=== PATIENT | male | born 1965 | race African-American/Black ===

== ENCOUNTER 2016-05-27 03:09 | Emergency (ER) | payer BC, OTHER ==
[~2016-05-27] VITALS: Ht 182.9 cm; Wt 97.5 kg
--- OUTSIDE RECORDS SUMMARY | 2016-05-27 03:17 | XMS REPORT ---
Author Author FREYA AMAYA [facility] eClinicalWorks Address Unknown Phone Unavailable Care Team Providers Care Drafter [employer] Name Role Phone FREYA AMAYA CP Unavailable Allergies No Known Allergies Problems Problem Type Condition Code Onset Dates Condition Status Assessment Visit for TB skin test Z11.1 Active Medications No Known Medications Procedures Procedure Coding System Code Date TB INTRADERMAL TEST CPT-4 27531 Jan 03, 2016 TB INTRADERMAL TEST CPT-4 15472 Jan 03, 2016 Results No Known Results Summary Purpose eClinicalWorks Submission
[2016-05-27] MEDS ORDERED: EPINEPHrine INJECTION 1 MG/ML AMP IM STA ×3 (03:25→04:41)
[2016-05-27] MEDS ORDERED: methylPREDNISolone 125 MG (Solu-MEDROL) VIAL IVP ONE ×2 (03:30→04:45)
[2016-05-27] MEDS ORDERED: cloNIDine 0.2 MG (CATAPRES) TAB PO ONE (03:30)
[2016-05-27] MEDS ORDERED: diphenhydrAMINE 50 MG/ML INJ (BENADRYL) IVP ONE ×2 (03:30→04:45)
[2016-05-27] MEDS ORDERED: FAMOTIDINE 20MG/2ML IV (PEPCID) IVP ONE (03:30)
[2016-05-27 03:33] LABS: BASOPHILS # (AUTO) 0.1 10^3/uL (0.0-0.1); BASOPHILS % (AUTO) 1 % (0-10); EOSINOPHILS # (AUTO) 2.1 10^3/uL (0.0-0.3); EOSINOPHILS % (AUTO) 23 % (0-10); LYMPHOCYTES # (AUTO) 2.3 X 10^3 (1.0-4.0); LYMPHOCYTES % (AUTO) 26 % (12-44); MEAN CORPUSCULAR HEMOGLOBIN 26 PG (25-34); MEAN CORPUSCULAR HGB CONC 33 G/DL (32-36); MEAN CORPUSCULAR VOLUME 79 FL (80-99); MEAN PLATELET VOLUME 10.1 FL (7.4-10.4); MONOCYTES % (AUTO) 11 % (0-12); NEUTROPHILS # (AUTO) 3.5 X 10^3 (1.8-7.8); NEUTROPHILS % (AUTO) 39 % (42-75); PLATELET COUNT 309 10^3/uL (130-400); RED BLOOD COUNT 5.53 10^6/uL (4.35-5.85); RED CELL DISTRIBUTION WIDTH 15.1 % (10.0-14.5); WHITE BLOOD COUNT 8.9 10^3/uL (4.3-11.0)
[2016-05-27 03:50] LABS: ALANINE AMINOTRANSFERASE 21 U/L (0-55); ALBUMIN 3.9 G/DL (3.2-4.5); ANION GAP 10 MMOL/L (5-14); ASPARTATE AMINO TRANSFERASE 31 U/L (5-34); BILIRUBIN,TOTAL 0.2 MG/DL (0.1-1.0); BLOOD UREA NITROGEN 11 MG/DL (7-18); BUN/CREATININE RATIO 9; CALCIUM 8.9 MG/DL (8.5-10.1); CARBON DIOXIDE 21 MMOL/L (21-32); CHLORIDE 106 MMOL/L (98-107); CREATININE SERUM 1.21 MG/DL (0.60-1.30); GFR ESTIMATED > 60; GLUCOSE 159 MG/DL (70-105); POTASSIUM 4.6 MMOL/L (3.6-5.0); SODIUM 137 MMOL/L (135-145); TOTAL PROTEIN 7.6 G/DL (6.4-8.2)
[2016-05-27 03:57] LABS: BAND NEUTROPHILS 0 %; BASOPHILS % (MANUAL) 1 %; EOSINOPHILS % (MANUAL) 25 %; LYMPHOCYTES % (MANUAL) 19 %; NEUTROPHILS % (MANUAL) 37 %; REACTIVE LYMPHOCYTES 8 %
[2016-05-27 03:58] LABS: ANISOCYTOSIS SLIGHT
--- NOTE | 2016-05-27 04:47 | ED EENT ---
History of Present Illness General Chief Complaint: Oral/Throat Problems Stated Complaint: SWOLLEN TONGUE Nursing Triage Note: PT STATES HIS TONGUE IS SWELLING, NOTICED IT AROUND 0100. Source: patient (TRESSA LING DO) History of Present Illness Time seen by provider: 03:18 Initial Comments PT ARRIVES VIA POV FROM HOME STATES HE WOKE UP AT 0100 TODAY WITH TONGUE SWELLING NO SWELLING TO THROAT NO CHEST TIGHTNESS, SHORTNESS OF BREATH, OR WHEEZING ABLE TO SWALLOW LIQUIDS WITHOUT CHOKING OR DROOLING NO PAIN NO RASH OR ITCHING NO SWELLING ANYWHERE ELSE ON BODY PT STATES HE HAD SIMILAR APPROXIMATELY 3 MONTHS AGO, BUT WAS NOT BAD AND WAS ONLY ONE SIDE OF HIS TONGUE A WEEK AGO, HIS WHOLE FACE WAS SWOLLEN--PT STOPPED HIS LISINOPRIL AT THAT TIME DID NOT SEEK CARE AT THE TIME FOR EITHER OF THESE EPISODES SAW HIS PCP DR. KING ON 05/22/16 . NO NEW BP MEDICATIONS STARTED. PCP: DR. KING AT [facility] ([facility]) Allergies and Home Medications Allergies Coded Allergies: CLINT Inhibitors (Verified Allergy, Unknown, 05/27/16) Home Medications Epinephrine 0.3 Mg/0.3 Ml Auto.injct #1 0.3 MG IJ PRN Prescribed by: ADRIAN SCHNEIDER on 05/27/16 0821 Famotidine 20 Mg Tablet #20 20 MG PO BID Prescribed by: ADRIAN SCHNEIDER on 05/27/16 08 Prednisone 20 Mg Tab #6 20 MG PO BID Prescribed by: ADRIAN SCHNEIDER on 05/27/16 0821 Review of Systems Constitutional: no symptoms reported Eyes: No Symptoms Reported Ears: No Symptoms Reported Nose: no symptoms reported Mouth: see HPI Throat: no symptoms reported Respiratory: no symptoms reported Cardiovascular: no symptoms reported Gastrointestinal: no symptoms reported Musculoskeletal: no symptoms reported Skin: no symptoms reported Neurological: No Symptoms Reported Hematologic/Lymphatic: No Symptoms Reported Immunological/Allergic: see HPI (TRESSA LING DO) Past Nfzvhfp-Dnwbva-Gjnlvs Hx Patient Social History Alcohol Use: Rarely Uses Recreational Drug Use: No Smoking Status: Never a Smoker Recent Foreign Travel: No Contact w/Someone Who Travel: No Recent Infectious Disease Expo: No Recent Hopitalizations: No Physical Abuse Screen: No Sexual Abuse: No (TRESSA LING DO) Seasonal Allergies Seasonal Allergies: No (ROSALBA,TRESSA K DO) Surgeries HX Surgeries: No (ROSALBA,TRESSA K DO) Respiratory Hx Respiratory Disorders: Yes Respiratory Disorders: Asthma (ROSALBA,TRESSA K DO) Cardiovascular Hx Cardiac Disorders: Yes Cardiac Disorders: Hypertension (ROSALBA,TRESSA K DO) Neurological Hx Neurological Disorders: No (ROSALBA,TRESSA K DO) Reproductive System Hx Reproductive Disorders: No (ROSALBA,TRESSA K DO) Genitourinary Hx Genitourinary Disorders: No (ROSALBA,TRESSA K DO) Gastrointestinal Hx Gastrointestinal Disorders: No (ROSALBA,TRESSA K DO) Musculoskeletal Hx Musculoskeletal Disorders: No (ROSALBA,TRESSA K DO) Endocrine Hx Endocrine Disorders: No (ROSALBA,TRESSA K DO) HEENT HX ENT Disorders: Yes (ANGIOEDEMA OF TONGUE--SUSPECTED TO BE CAUSED BY CLINT INHIBITOR) (ROSALBA,TRESSA K DO) Cancer Hx Cancer: No (ROSALBA,TRESSA K DO) Psychosocial Hx Psychiatric Problems: No (ROSALBA,TRESSA K DO) Integumentary HX Skin/Integumentary Disorder: No (ROSALBA,TRESSA K DO) Blood Transfusions Hx Blood Disorders: No (ROSALBA,TRESSA K DO) Physical Exam Vital Signs Vital Sign - Last 12Hours 05/27/16 03:18 Temp 97.3 Pulse 82 Resp 20 B/P 206/127 (ADRIAN ENG MD) General Appearance: WD/WN no apparent distress Eyes: bilateral eye normal inspection Nose: normal inspection Mouth/Throat: tongue swollen (SIGNIFICANT--TONGUE TOUCHING ROOF OF MOUTH, PT' S VOICE IS VERY MUFFLED, BUT IS ABLE TO HANDLE SECRETIONS. 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 no motor/sensory deficits alert normal mood/affect oriented x 3 Skin: normal color warm/dryNo rash (ROSALBA,TRESSA K DO) Progress/Results/Core Measures Results/Orders Lab Results Laboratory Tests Test 05/27/16 03:24 Range/Units Alanine Aminotransferase (ALT/SGPT) 21 0-55 U/L Albumin 3.9 3.2-4.5 G/DL Alkaline Phosphatase 66 40-136 U/L Anion Gap 10 5-14 MMOL/L Anisocytosis SLIGHT Aspartate Amino Transf (AST/SGOT) 31 5-34 U/L BUN/Creatinine Ratio 9 Band Neutrophils 0 % Basophils # (Auto) 0.1 0.0-0.1 10^3/uL Basophils % (Manual) 1 % Basophils (%) (Auto) 1 0-10 % Blood Urea Nitrogen 11 7-18 MG/DL Calcium Level 8.9 8.5-10.1 MG/DL Carbon Dioxide Level 21 21-32 MMOL/L Chloride Level 106 98-107 MMOL/L Creatinine 1.21 0.60-1.30 MG/DL Eosinophils # (Auto) 2.1 H 0.0-0.3 10^3/uL Eosinophils % (Manual) 25 % Eosinophils (%) (Auto) 23 H 0-10 % Estimat Glomerular Filtration Rate > 60 Glucose Level 159 H 70-105 MG/DL Hematocrit 44 40-54 % Hemoglobin 14.3 13.3-17.7 G/DL Lymphocytes # (Auto) 2.3 1.0-4.0 X 10^3 Lymphocytes % (Manual) 19 % Lymphocytes (%) (Auto) 26 12-44 % Mean Corpuscular Hemoglobin 26 25-34 PG Mean Corpuscular Hemoglobin Concent 33 32-36 G/DL Mean Corpuscular Volume 79 L 80-99 FL Mean Platelet Volume 10.1 7.4-10.4 FL Monocytes # (Auto) 1.0 0.0-1.0 X 10^3 Monocytes % (Manual) 10 % Monocytes (%) (Auto) 11 0-12 % Neutrophils # (Auto) 3.5 1.8-7.8 X 10^3 Neutrophils % (Manual) 37 % Neutrophils (%) (Auto) 39 L 42-75 % Platelet Count 309 130-400 10^3/uL Potassium Level 4.6 3.6-5.0 MMOL/L Reactive Lymphocytes 8 % Red Blood Count 5.53 4.35-5.85 10^6/uL Red Cell Distribution Width 15.1 H 10.0-14.5 % Sodium Level 137 135-145 MMOL/L Total Bilirubin 0.2 0.1-1.0 MG/DL Total Protein 7.6 6.4-8.2 G/DL White Blood Count 8.9 4.3-11.0 10^3/uL (ADRIAN ENG MD) My Orders Orders-ADRIAN ENG MD Hydrochlorothiazide Cap/Tablet (Hctz Cap (05/27/16 08:15) (ADRIAN ENG MD) Medications Given in ED Current Medications Medications Dose Ordered Sig/Jelly Route Start Time Stop Time Status Last Admin Dose Admin Clonidine HCl 0.2 mg ONCE ONCE PO 05/27/16 03:30 05/27/16 03:31 DC 05/27/16 03:39 0.2 MG Diphenhydramine HCl 50 mg ONCE ONCE IVP 05/27/16 03:30 05/27/16 03:31 DC 05/27/16 03:39 50 MG Diphenhydramine HCl 50 mg ONCE ONCE IVP 05/27/16 04:45 05/27/16 04:46 DC 05/27/16 04:49 50 MG Famotidine 40 mg ONCE ONCE IVP 05/27/16 03:30 05/27/16 03:31 DC 05/27/16 03:40 40 MG Hydrochlorothiazide 25 mg ONCE ONCE PO 05/27/16 08:15 05/27/16 08:16 DC 05/27/16 08:21 25 MG Methylprednisolone Sodium Succinate 125 mg ONCE ONCE IVP 05/27/16 03:30 05/27/16 03:31 DC 05/27/16 03:40 125 MG Methylprednisolone Sodium Succinate 125 mg ONCE ONCE IVP 05/27/16 04:45 05/27/16 04:46 DC 05/27/16 04:49 125 MG (ADRIAN ENG MD) Vital Signs/I&O Vital Sign - Last 12Hours 05/27/16 03:18 Temp 97.3 Pulse 82 Resp 20 B/P 206/127 (ADRIAN ENG MD) Blood Pressure Mean: 153 Progress Note : Progress Note 0530-SOME IMPROVEMENT IN SWELLING AND VOICE LESS MUFFLED HAVE ADVISED ADMIT, BUT PT WOULD LIKE TO BE OBSERVED IN ER FOR A LITTLE WHILE LONGER AND AVOID ADMIT IF POSSIBLE. 0600--CARE TURNED OVER TO DR. ENG (TRESSA LING DO) Progress Note : Time: 08:09 Progress Note Patient was monitored for an additional 2 hours after I assumed care of this patient from Dr. Ling. His symptoms markedly improved with no additional treatments. The cause could be related to lisinopril, but patient clarifies he has not used lisinopril and over one week. He was encouraged to follow up with his primary care provider as soon as possible to discuss other causes as well as treatment of his hypertension. For the time being, hydrochlorothiazide will be started. The first dose of hydrochlorothiazide was administered in the ER before his departure. (ADRIAN ENG MD) Departure Impression Impression: Primary Impression: ANGIOEDEMA OF TONGUE Additional Impressions: SUSPETED CAUSE --CLINT INHIBITOR Hypertension, uncontrolled Disposition: HOME, SELF-CARE Condition: Improved Departure-Patient Inst. Decision time for Depature: 08:00 (ADRIAN ENG MD) Referrals: [facility] (PCP) Primary Care Physician Patient Instructions: Angioedema Add. Discharge Instructions: Do not take any CLINT inhibitor such as lisinopril. Eat a low-salt diet and focus on exercise and weight reduction to help control your blood pressure. A trial of hydrochlorothiazide has been prescribed to you for treatment of your blood pressure. Follow-up with your primary care provider as soon as possible for further evaluation of angioedema and your high blood pressure. Keep Benadryl and an EpiPen with you whenever possible for treatment of emergent angioedema. Use Benadryl 50 mg immediately for any recurrent symptoms of angioedema. Use the EpiPen for life-threatening swelling of the tongue or throat and present to the nearest hospital as soon as possible. Call 911 if necessary. You may continue using Zyrtec daily. All discharge instructions reviewed with patient and/or family. Voiced understanding. Scripts Hydrochlorothiazide 25 Mg [id number] Mg PO DAILY #30 TAB Prov:ADRIAN ENG MD 05/27/16 Epinephrine (Epipen 2-Maykel)0.3 Mg/0.3 Ml Auto.injct0.3 Mg IJ PRN #1 ML Prov:ADRIAN ENG MD 05/27/16 Prednisone 20 Mg Tab20 Mg PO BID #6 TAB Prov:ADRIAN ENG MD 05/27/16 Famotidine (Pepcid)20 Mg Sonqyn78 Mg PO BID #20 TAB Prov:ADRIAN ENG MD 05/27/16 Copy Copies To 1: KATHIA KING MD, LISA K DO May 27, 2016 04:47 ADRIAN ENG MD May 27, 2016 08:14
[2016-05-27] MEDS ORDERED: HYDROCHLOROTHIAZIDE 25 MG (HCTZ) TAB PO ONE (08:15)
[2016-05-27] MEDS ORDERED: PRD20T PO (08:21)
[2016-05-27] MEDS ORDERED: FAMO-119 PO (08:21)
[2016-05-27] MEDS ORDERED: EPIN0.3P3 IJ (08:21)
[2016-05-27] MEDS ORDERED: HYDR25TA4 PO (08:27)
[2016-05-27 08:30] VITALS: BP 151/104
== END 2016-05-27 08:35 | disposition home or self-care (01) ==
LOC: ER 03:14
DX: T78.3XXA Angioneurotic edema, initial encounter (principal); I16.0 Hypertensive urgency
CPT/HCPCS: 36415; 80053; 85007; 85027; 96372; 96374; 96375; 96376

== ENCOUNTER 2016-06-12 06:41 | Emergency (ER) | payer BC, OTHER ==
[~2016-06-12] VITALS: Ht 180.3 cm; Wt 111.1 kg
[~2016-06-12 06:41] MED LIST: EPIN0.3P3 IJ; FAMO-119 PO; HYDR25TA4 PO; PRD20T PO
--- OUTSIDE RECORDS SUMMARY | 2016-06-12 06:47 | XMS REPORT | Continuity of Care Document ---
Author Author [facility] Organization [facility] Address Unknown Phone Unavailable Care Team Providers Care Design Lead Name Role Phone [facility] PCP Insurance Providers Payer Name Policy Number Subscriber Name Relationship [facility] [id number] Carmel Bonner 18 Self / Same As Patient Advance Directives Directive Response Recorded Date/Time Advance Directives No 05/27/16 3:22am Resuscitation Status Full Code 05/27/16 3:22am Chief Complaint and Reason for Visit Chief Complaint Oral/Throat Problems Reason for Visit ANGIOEDEMA OF TONGUE [id number] SUSPETED CAUSE --CLINT INHIBITOR Problems Active Problems Medical Problem Onset Date Status Hypertension, uncontrolled Unknown Acute Medications Current Home Medications Medication Dose Units Route Directions Days/Qty Instructions Start Date Famotidine 20 Mg 20 Mg Oral Twice A Day 20 05/27/16 Prednisone 20 Mg 20 Mg Oral Twice A Day 6 05/27/16 Epinephrine 0.3 Mg/0.3 Ml 0.3 Mg Injection As Needed 1 05/27/16 Hydrochlorothiazide 25 Mg 25 Mg Oral Daily 30 05/27/16 Social History Social History Problem Response Recorded Date/Time Alcohol Use Rarely Uses 05/27/2016 4:48am Recreational Drug Use No 05/27/2016 3:22am Recent Foreign Travel No 05/27/2016 3:18am Recent Infectious Disease Exposure No 05/27/2016 3:18am Hospitalization with Isolation Denies 05/27/2016 3:18am Smoking Status Never a Smoker 05/27/2016 3:22am Recent Hopitalizations No 05/27/2016 3:22am Hospitalization with Isolation Denies 05/27/2016 3:18am Query Response Start Date Stop Date Smoking Status Never a Smoker Hospital Discharge Instructions No hospital discharge instructions. Plan of Care Discharge Date 05/27/16 8:35am Disposition 01 HOME, SELF-CARE Condition at Discharge Improved Instructions/Education Provided Angioedema Prescriptions See Medication Section Referrals [facility] - Primary Care Physician Additional Instructions/Education Do not take any CLINT inhibitor such as lisinopril. Eat a low-salt diet and focus on exercise and weight reduction to help control your blood pressure. A trial of hydrochlorothiazide has been prescribed to you for treatment of your blood pressure. Follow-up with your primary care provider as soon as possible for further evaluation of angioedema and your high blood pressure. Keep Benadryl and an EpiPen with you whenever possible for treatment of emergent angioedema. Use Benadryl 50 mg immediately for any recurrent symptoms of angioedema. Use the EpiPen for life-threatening swelling of the tongue or throat and present to the nearest hospital as soon as possible. Call 911 if necessary. You may continue using Zyrtec daily. All discharge instructions reviewed with patient and/or family. Voiced understanding. Functional Status No functional status results. Allergies, Adverse Reactions, Alerts Allergen Type Severity Reaction Status Last Updated Angiotensin-converting enzyme inhibitor Allergy Unknown Active 05/27/16 Immunizations No immunization records. Vital Signs Acute Vital Signs Vital Response Date/Time Temperature (Fahrenheit) 97.3 degrees F (97.6 - 99.5) 05/27/2016 3:18am Temperature (Calculated Celsius) 36.08423 degrees C (36.4 - 37.5) 05/27/2016 3:18am Temperature Source Temporal 05/27/2016 3:18am Pulse Rate (adult) 82 bpm (60 - 90) 05/27/2016 3:18am Respiratory Rate 20 bpm (12 - 24) 05/27/2016 3:18am Blood Pressure 206/127 mm Hg 05/27/2016 3:18am Blood Pressure Mean 153 mm Hg 05/27/2016 3:18am Height (Feet) 6 feet 05/27/2016 3:18am Height (Inches) 0 inches 05/27/2016 3:18am Height (Calculated Centimeters) 182.794872 cm 05/27/2016 3:18am Weight (Pounds) 215 pounds 05/27/2016 3:18am Weight (Calculated Kilograms) 97.206280 kilograms 05/27/2016 3:18am Capillary Refill Capillary Refill Less Than 3 Seconds 05/27/2016 3:18am Height 6 ft 0 in Weight 215 lb Body Mass Index 29.2 kg/m^2 Results Laboratory Results Test Name Result Units Flags Reference Collection Date/Time Result Date/ Time Comments White Blood Count 8.9 10^3/uL 4.3-11.0 05/27/2016 3:05/27/2016 3: 34am Red Blood Count 5.53 10^6/uL 4.35-5.85 05/27/2016 3:05/27/2016 3: 34am Hemoglobin 14.3 G/DL 13.3-17.7 05/27/2016 3:05/27/2016 3:34am Hematocrit 44 % 40-54 05/27/2016 3:05/27/2016 3:34am Mean Corpuscular Volume 79 FL L 80-99 05/27/2016 3:05/27/2016 3: 34am Mean Corpuscular Hemoglobin 26 PG 25-34 05/27/2016 3:05/27/2016 3: 34am Mean Corpuscular Hemoglobin Concent 33 G/DL 32-36 05/27/2016 3: 3:34am Red Cell Distribution Width 15.1 % H 10.0-14.5 05/27/2016 3:2016 3:34am Platelet Count 309 10^3/uL 130-400 05/27/2016 3:05/27/2016 3:34am Mean Platelet Volume 10.1 FL 7.4-10.4 05/27/2016 3:05/27/2016 3: 34am Neutrophils (%) (Auto) 39 % L 42-75 05/27/2016 3:05/27/2016 3:34am Lymphocytes (%) (Auto) 26 % 12-44 05/27/2016 3:05/27/2016 3:34am Monocytes (%) (Auto) 11 % 0-12 05/27/2016 3:05/27/2016 3:34am Eosinophils (%) (Auto) 23 % H 0-10 05/27/2016 3:05/27/2016 3:34am Basophils (%) (Auto) 1 % 0-10 05/27/2016 3:05/27/2016 3:34am Neutrophils # (Auto) 3.5 X 10^3 1.8-7.8 05/27/2016 3:05/27/2016 3: 34am Lymphocytes # (Auto) 2.3 X 10^3 1.0-4.0 05/27/2016 3:05/27/2016 3: 34am Monocytes # (Auto) 1.0 X 10^3 0.0-1.0 05/27/2016 3:05/27/2016 3: 34am Eosinophils # (Auto) 2.1 10^3/uL H 0.0-0.3 05/27/2016 3:05/27/2016 3 :34am Basophils # (Auto) 0.1 10^3/uL 0.0-0.1 05/27/2016 3:05/27/2016 3: 34am Neutrophils % (Manual) 37 % 05/27/2016 3:05/27/2016 3:58am Band Neutrophils 0 % 05/27/2016 3:05/27/2016 3:58am Lymphocytes % (Manual) 19 % 05/27/2016 3:05/27/2016 3:58am Monocytes % (Manual) 10 % 05/27/2016 3:05/27/2016 3:58am Eosinophils % (Manual) 25 % 05/27/2016 3:05/27/2016 3:58am Basophils % (Manual) 1 % 05/27/2016 3:05/27/2016 3:58am Reactive Lymphocytes 8 % 05/27/2016 3:05/27/2016 3:58am Anisocytosis SLIGHT 05/27/2016 3:05/27/2016 3:58am Sodium Level 137 MMOL/L 135-145 05/27/2016 3:05/27/2016 3:51am Potassium Level 4.6 MMOL/L 3.6-5.0 05/27/2016 3:05/27/2016 3:51am Chloride Level 106 MMOL/L 98-107 05/27/2016 3:05/27/2016 3:51am Carbon Dioxide Level 21 MMOL/L 21-32 05/27/2016 3:05/27/2016 3: 51am Anion Gap 10 MMOL/L 5-14 05/27/2016 3:05/27/2016 3:51am Blood Urea Nitrogen 11 MG/DL 7-18 05/27/2016 3:05/27/2016 3:51am Creatinine 1.21 MG/DL 0.60-1.30 05/27/2016 3:05/27/2016 3:51am BUN/Creatinine Ratio 9 05/27/2016 3:05/27/2016 3:51am Estimat Glomerular Filtration Rate > 60 05/27/2016 3:2016 3:51am GFR INTERPRETIVE DATA UNITS FOR ESTIMATED GFR (eGFR): mL/min/1.73 M2 REFERENCE RANGE FOR ESTIMATED GFR (eGFR) eGFR NORMAL eGFR >60 MODERATELY DECREASED eGFR 30-59 SEVERLY DECREASED eGFR 15-29 KIDNEY FAILURE <15 (OR DIALYSIS) Glucose Level 159 MG/DL H 70-105 05/27/2016 3:05/27/2016 3:51am Calcium Level 8.9 MG/DL 8.5-10.1 05/27/2016 3:05/27/2016 3:51am Total Bilirubin 0.2 MG/DL 0.1-1.0 05/27/2016 3:05/27/2016 3:51am Alkaline Phosphatase 66 U/L 40-136 05/27/2016 3:05/27/2016 3:51am Aspartate Amino Transf (AST/SGOT) 31 U/L 5-34 05/27/2016 3:2016 3:51am Alanine Aminotransferase (ALT/SGPT) 21 U/L 0-55 05/27/2016 3:05/27 3:51am Total Protein 7.6 G/DL 6.4-8.2 05/27/2016 3:05/27/2016 3:51am Albumin 3.9 G/DL 3.2-4.5 05/27/2016 3:24am 05/27/2016 3:51am Procedures No known history of procedures. Encounters Encounter Location Arrival/Admit Date Discharge/Depart Date Attending Provider Departed Emergency Room [facility] 05/27/16 3:14am 05/27 8:35am ADRIAN ENG MD Recent Diagnosis
[2016-06-12] MEDS ORDERED: AMLO10TA2 PO (06:55)
[2016-06-12] MEDS ORDERED: FAMOTIDINE 20MG/2ML IV (PEPCID) IVP ONE (07:00)
[2016-06-12] MEDS ORDERED: diphenhydrAMINE 50 MG/ML INJ (BENADRYL) IVP ONE (07:00)
[2016-06-12] MEDS ORDERED: methylPREDNISolone 125 MG (Solu-MEDROL) VIAL IVP ONE (07:00)
--- NOTE | 2016-06-12 08:26 | ED General ---
General Chief Complaint: Allergic Reaction Stated Complaint: FACIAL SWELLING Nursing Triage Note: pt reports he had facial swelling, et swelling in left forearm starting at 0500 this morning. he believed he was having a reaction to amlodipine that he started yesterday morning. he took 10 benadryl at home. he is currently taking prednisone for reactions to lisinopril et hctz. he also reports cough et sore throat which he is taking cough syrup for. Nursing Sepsis Screen: No Definite Risk Source of Information: Patient Exam Limitations: No Limitations History of Present Illness Time Seen by Provider: 06:45 Initial Comments Patient complains of right-sided facial swelling and swelling in his left forearm starting at 5 this morning. He was seen 2 weeks ago for angioedema of the tongue secondary to CLINT inhibitor. He is wondering if he is having a reaction to the amlodipine. He took Benadryl prior to arrival. He denies shortness of air or throat swelling. Allergies and Home Medications Allergies Coded Allergies: CLINT Inhibitors (Verified Allergy, Unknown, 05/27/16) Home Medications Amlodipine Besylate 10 Mg Tablet 10 MG PO DAILY (Reported) Epinephrine 0.3 Mg/0.3 Ml Auto.injct #1 0.3 MG IJ PRN Prescribed by: ADRIAN SCHNEIDER on 05/27/16820 Famotidine 20 Mg Tablet #20 20 MG PO BID Prescribed by: ADRIAN SCHNEIDER on 05/27/16820 Prednisone 20 Mg Tab #6 20 MG PO BID Prescribed by: ADRIAN SCHNEIDER on 05/27/16820 Constitutional: no symptoms reported EENTM: No throat swelling Respiratory: no symptoms reported Cardiovascular: no symptoms reported Musculoskeletal: no symptoms reported All Other Systems Reviewed Negative Unless Noted: Yes Past Ieymvzi-Pzvawo-Gypkww Hx Patient Social History Alcohol Use: Occasionally Uses Recreational Drug Use: No Smoking Status: Never a Smoker Recent Foreign Travel: No Contact w/Someone Who Travel: No Recent Infectious Disease Expo: No Recent Hopitalizations: No Seasonal Allergies Seasonal Allergies: No Surgeries HX Surgeries: No Respiratory Hx Respiratory Disorders: Yes Respiratory Disorders: Asthma Cardiovascular Hx Cardiac Disorders: Yes Cardiac Disorders: Hypertension Neurological Hx Neurological Disorders: No Reproductive System Hx Reproductive Disorders: No Genitourinary Hx Genitourinary Disorders: No Gastrointestinal Hx Gastrointestinal Disorders: No Musculoskeletal Hx Musculoskeletal Disorders: No Endocrine Hx Endocrine Disorders: No HEENT HX ENT Disorders: Yes (ANGIOEDEMA OF TONGUE--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 Parotid) is swollen) Neck: Supple Respiratory: Lungs Clear Normal Breath Sounds Cardiovascular: Regular Rate, Rhythm Gastrointestinal: Soft Extremity: Normal Inspection Other (there is some redness and swelling to the left antecubital area) Neurologic/Psychiatric: Alert No Motor/Sensory Deficits Skin: Normal Color Warm/Dry Progress/Results/Core Measures Results/Orders Lab Results Laboratory Tests Test 06/12/16 07:10 Range/Units Micro Results Microbiology 06/12/16 Influenza Types A,B Antigen (FRANNIE) - Final, Complete My Orders Orders-KELLY MATHEWS MD Diphenhydramine Injection (Benadryl Inje (06/12/16 07:00) Famotidine Injection (Pepcid Injection) (06/12/16 07:00) Methylprednisolone Sod Succ (Solu-Medrol (06/12/16 07:00) Mumps Antibody Igg & M (06/12/16 07:01) Influenza A And B Antigens (06/12/16 07:10) Mumps Antibody Igg & M (06/12/16 08:13) Medications Given in ED Current Medications Medications Dose Ordered Sig/Jelly Route Start Time Stop Time Status Last Admin Dose Admin Diphenhydramine HCl 25 mg ONCE ONCE IVP 06/12/16 07:00 06/12/16 07:01 DC 06/12/16 07:17 25 MG Famotidine 20 mg ONCE ONCE IVP 06/12/16 07:00 06/12/16 07:01 DC 06/12/16 07:17 20 MG Methylprednisolone Sodium Succinate 125 mg ONCE ONCE IVP 06/12/16 07:00 06/12/16 07:01 DC 06/12/16 07:17 125 MG Vital Signs/I&O Vital Sign - Last 12Hours 06/12/16 06:49 Temp 98.6 Pulse 109 Resp 18 B/P 150/103 O2 Delivery Room Air Blood Pressure Mean: 119 Progress Note : Time: 08:24 Progress Note Patient's symptoms are not any worse. No tongue swelling. Feels well enough to go home. Mumps titers and equal swab were sent to appropriate authorities. I spoke with [employer] hot line and faxed reportable disease form. There is a outbreak of mumps in the area and let us reason we checked them. Departure Impression Impression: Primary Impression: Facial swelling Disposition: 01 HOME, SELF-CARE Condition: Stable Departure-Patient Inst. Decision time for Depature: 08:25 Referrals: [facility] (PCP/Family) Primary Care Physician Patient Instructions: Parotitis KELLY MATHEWS MD Jun 12, 2016 08:26
[2016-06-12 08:40] VITALS: BP 142/88
[2016-06-13 13:47] LABS: IGM MUMPS ANTIBODY <1:10 (<1:10)
[2016-06-14 16:45] LABS: IGG MUMPS ANTIBODY 4.84 (0.00-0.89)
== END 2016-06-12 08:40 | disposition home or self-care (01) ==
LOC: EDUNIT# 06:41 → ER 06:43
DX: R22.0 Localized swelling, mass and lump, head (principal); R22.32 Localized swelling, mass and lump, left upper limb; Z79.899 Other long term (current) drug therapy
CPT/HCPCS: 36415; 86735; 87798; 87804; 96374; 96375

== ENCOUNTER 2016-07-01 19:54 | Emergency (ER) | payer BC ==
[~2016-07-01] VITALS: Ht 180.3 cm; Wt 115.7 kg
[~2016-07-01 19:54] MED LIST changes: +AMLO10TA2 PO
--- OUTSIDE RECORDS SUMMARY | 2016-07-01 19:59 | XMS REPORT | Continuity of Care Document ---
Author Author [facility] Organization [facility] Address Unknown Phone Unavailable Care Team Providers Care Tip Tester Name Role Phone [facility] Insurance Providers Payer Name Policy Number Subscriber Name Relationship [facility] [id number] Carmel Bonner 19 Self / Same As Patient Advance Directives Directive Response Recorded Date/Time Advance Directives No 05/27/16 3:22am Resuscitation Status Full Code 05/27/16 3:22am Chief Complaint and Reason for Visit Chief Complaint Oral/Throat Problems Reason for Visit ANGIOEDEMA OF TONGUE [id number] SUSPETED CAUSE --[employer] Problems Active Problems [...] Provided Angioedema Prescriptions See Medication Section Referrals [facility] - Primary Care Physician Additional Instructions/Education Do [...] - 99.5) 05/27/2016 3:18am Temperature (Calculated Celsius) 36.09207 degrees C (36.4 - 37.5) 05/27/2016 3:18am Temperature Source Temporal 05/27/2016 3:18am Pulse Rate (adult) 82 bpm (60 - 90) 05/27/2016 3:18am Respiratory Rate 20 bpm (12 - 24) 05/27/2016 3:18am Blood Pressure 206/127 mm Hg 05/27/2016 3:18am Blood Pressure Mean 153 mm Hg 05/27/2016 3:18am Height (Feet) 6 feet 05/27/2016 3:18am Height (Inches) 0 inches 05/27/2016 3:18am Height (Calculated Centimeters) 182.790203 cm 05/27/2016 3:18am Weight (Pounds) 215 pounds 05/27/2016 3:18am Weight (Calculated Kilograms) 97.983576 kilograms 05/27/2016 3:18am Capillary Refill Capillary Refill [...] Date Attending Provider Departed Emergency Room [facility] 05/27/16 3:14am 05/27 8:35am ADRIAN ENG MD Recent Diagnosis
[2016-07-01] MEDS ORDERED: HYDR25TA4 PO (20:04)
[2016-07-01] MEDS ORDERED: METF500T8 PO (20:04)
[2016-07-01] MEDS ORDERED: BUDE10.22 INH (20:04)
[2016-07-01] MEDS ORDERED: METO50TA2 PO (20:04)
[2016-07-01] MEDS ORDERED: FAMOTIDINE 20MG/2ML IV (PEPCID) ONE (20:05)
[2016-07-01] MEDS ORDERED: diphenhydrAMINE 50 MG/ML INJ (BENADRYL) ONE (20:05)
[2016-07-01] MEDS ORDERED: EPINEPHrine INJECTION 1 MG/ML AMP ONE (20:06)
[2016-07-01] MEDS ORDERED: methylPREDNISolone 125 MG (Solu-MEDROL) VIAL IVP ONE (20:15)
[2016-07-01] MEDS ORDERED: EPINEPHrine INJECTION 1 MG/ML AMP IM ONE (20:15)
[2016-07-01] MEDS ORDERED: diphenhydrAMINE 50 MG/ML INJ (BENADRYL) IVP ONE (20:15)
[2016-07-01] MEDS ORDERED: FAMOTIDINE 20MG/2ML IV (PEPCID) IVP ONE (20:15)
--- NOTE | 2016-07-01 20:17 | ED General ---
General Chief Complaint: Allergic Reaction Stated Complaint: POSSIBLE ALLERGIC REACTION Nursing Triage Note: throat discomfort/swelling x2 hrs Nursing Sepsis Screen: No Definite Risk Source of Information: Patient Exam Limitations: No Limitations History of Present Illness Time Seen by Provider: 20:15 Initial Comments To ER with difficulty swallowing and throat discomfort for the past several hours. This began at 2 p.m. today. The swelling has been progressive over the past 6 hours. He's been seen here twice this year for angioedema. His Michael inhibitors were stopped. Patient states that he's been given Benadryl historically for these type of symptoms which did improve his symptoms. He has since stopped his MICHAEL inhibitor but symptoms persist. Timing/Duration: 4-6 Hours Severity: Moderate Allergies and Home Medications Allergies Coded Allergies: MICHAEL Inhibitors (Verified Allergy, Unknown, 05/27/16) Home Medications Budesonide/Formoterol Fumarate 10.2 Gm Hfa.aer.ad 1 INHALER INH UD (Reported) Epinephrine 0.3 Mg/0.3 Ml Auto.injct #1 0.3 MG IJ PRN Prescribed by: ADRIAN SCHNEIDER on 05/27/16 0821 Famotidine 20 Mg Tablet #20 20 MG PO BID Prescribed by: ADRIAN SCHNEIDER on 05/27/16 0821 Hydrochlorothiazide 25 Mg Tablet #30 1 TAB PO UD (Reported) Metformin HCl 500 Mg Tab.er.24h #30 1 TAB PO UD (Reported) Metoprolol Tartrate 50 Mg Tablet #60 1 TAB PO UD (Reported) Prednisone 20 Mg Tab #6 40 MG PO DAILY Prescribed by: MIO EASON on 07/01/16 2243 Constitutional: see HPINo chills, No fever EENTM: see HPI throat pain throat swelling Respiratory: no symptoms reported Cardiovascular: no symptoms reported Genitourinary: no symptoms reported Musculoskeletal: no symptoms reported Skin: no symptoms reported Psychiatric/Neurological: No Symptoms Reported Hematologic/Lymphatic: No Symptoms Reported Immunological/Allergic: no symptoms reported Past Bnlhxiv-Tuisow-Nlgftu Hx Patient Social History Alcohol Use: Denies Use Recreational Drug Use: No Smoking Status: Never a Smoker 2nd Hand Smoke Exposure: No Recent Foreign Travel: No Contact w/Someone Who Travel: No Recent Infectious Disease Expo: No Recent Hopitalizations: No Immunizations Up To Date Tetanus Booster (TDap): Unknown Seasonal Allergies Seasonal Allergies: No Surgeries HX Surgeries: No Respiratory Hx Respiratory Disorders: Yes Respiratory Disorders: Asthma Cardiovascular Hx Cardiac Disorders: Yes Cardiac Disorders: High Cholesterol, Hypertension Neurological Hx Neurological Disorders: No Reproductive System Hx Reproductive Disorders: No Genitourinary Hx Genitourinary Disorders: No Gastrointestinal Hx Gastrointestinal Disorders: Yes Gastrointestinal Disorders: Gastroesophageal Reflux Musculoskeletal Hx Musculoskeletal Disorders: No Endocrine Hx Endocrine Disorders: Yes Endocrine Disorders: Diabetes, Non-Insulin dep HEENT HX ENT Disorders: No Cancer Hx Cancer: No Psychosocial Hx Psychiatric Problems: No Integumentary HX Skin/Integumentary Disorder: No Blood Transfusions Hx Blood Disorders: No Physical Exam Vital Signs Vital Sign - Last 12Hours 07/01/16 20:04 Temp 98.8 Pulse 78 Resp 18 B/P 173/98 Pulse Ox 99 O2 Delivery Room Air Capillary Refill : Less Than 3 Seconds General Appearance: No Apparent Distress (he is swallowing his own secretions , able to speak) WD/WN Eyes: Bilateral Eye EOMI, Bilateral Eye Normal Inspection, Bilateral Eye PERRL HEENT: PERRL/EOMI TMs Normal Other (there is no swelling of the tongue or the lips. However there is significant swelling of the left side of the oropharynx around and posterior to the tonsil on the left. This does not yet cross midline but is close. This has a very pale and boggy appearance) Respiratory: No Accessory Muscle Use No Respiratory Distress Cardiovascular: Regular Rate, Rhythm Normal Peripheral Pulses Gastrointestinal: Normal Bowel Sounds Non Tender Soft Extremity: Normal Capillary Refill Normal Inspection Neurologic/Psychiatric: Alert Oriented x3 No Motor/Sensory Deficits Progress/Results/Core Measures Results/Orders Lab Results Laboratory Tests Test 07/01/16 20:15 Range/Units My Orders Orders-MIO EASON APRN Saline Lock/Iv-Start (07/01/16 20:04) Diphenhydramine Injection (Benadryl Inje (07/01/16 20:15) Methylprednisolone Sod Succ (Solu-Medrol (07/01/16 20:15) Famotidine Injection (Pepcid Injection) (07/01/16 20:15) Epinephrine 1 Mg Injection (Adrenalin I (07/01/16 20:15) C1 Esterase Inhibitor Function (07/01/16 20:05) C1 Esterase Inhibitor Qnt (07/01/16 20:05) Complement C4 Serum (07/01/16 20:05) Famotidine Injection (Pepcid Injection) (07/01/16 20:05) Diphenhydramine Injection (Benadryl Inje (07/01/16 20:05) Epinephrine 1 Mg Injection (Adrenalin I (07/01/16 20:06) Clonidine Tablet (Catapres Tablet) (07/01/16 20:30) Medications Given in ED Current Medications Medications Dose Ordered Sig/Jelly Route Start Time Stop Time Status Last Admin Dose Admin Clonidine HCl 0.1 mg ONCE ONCE PO 07/01/16 20:30 07/01/16 20:31 DC 07/01/16 20:28 0.1 MG Diphenhydramine HCl 25 mg ONCE ONCE IVP 07/01/16 20:15 07/01/16 20:16 DC 07/01/16 20:12 25 MG Epinephrine HCl 0.3 mg ONCE ONCE IM 07/01/16 20:15 07/01/16 20:16 DC 07/01/16 20:11 0.3 MG Famotidine 20 mg ONCE ONCE IVP 07/01/16 20:15 07/01/16 20:16 DC 07/01/16 20:09 20 MG Methylprednisolone Sodium Succinate 125 mg ONCE ONCE IVP 07/01/16 20:15 07/01/16 20:16 DC 07/01/16 20:09 125 MG Vital Signs/I&O Vital Sign - Last 12Hours 07/01/16 07/01/16 07/01/16 20:04 21:15 21:52 Temp 98.8 Pulse 78 80 77 Resp 18 16 16 B/P 173/98 161/105 151/88 Pulse Ox 99 94 95 O2 Delivery Room Air Room Air Room Air Blood Pressure Mean: 123 Departure Communication Progress Notes 2100-sitting up in bed, reading on his cell phone. No distress. Vitals stable. Remains hypertensive. States he feels that there may be some minimal improvement. We will watch him for another hour or 2 to ensure continued improvement or at least no worsening. 2150-I am able to notice some reduction in the left side oropharyngeal swelling. He continues to be without distress and states he feels mildly better at best. 2245-continues to feel some improvement. He is noted to clear his throat quite frequently when talking however still states that it feels less swollen and upon arrival and he is able to swallow more easily. He does have an EpiPen with him in his pocket and Benadryl at home and agrees to take Benadryl at home tonight and return for any worsening. Remains without respiratory distress, very pleasant gentleman. The left side of the oropharynx is still boggy and swollen but much less tense appearing and full appearing than upon arrival. Impression Impression: Primary Impression: Angioedema Qualified Code: T78.3XXA - Angioneurotic edema, initial encounter Additional Impression: Hypertension, uncontrolled Disposition: 01 HOME, SELF-CARE Condition: Improved Departure-Patient Inst. Decision time for Depature: 22:41 Referrals: [facility] (PCP/Family) Primary Care Physician Patient Instructions: Angioedema Add. Discharge Instructions: 1. Follow-up with your regular doctor this week 2. You must return to the emergency room immediately tonight or tomorrow if you develop any worsening swelling in the throat, recurrent swelling in the throat, trouble swallowing or trouble breathing. 3. Additionally, you should take Benadryl 1-2 tablets every 4 hours for the next 24 hours 4. Take xupy-dst-qxqonzi Pepcid one tablet twice daily for the next week 5. I have sent your steroids electronically to [facility] which you should start tomorrow morning All discharge instructions reviewed with patient and/or family. Voiced understanding. Scripts Prednisone 20 Mg Tab40 Mg PO DAILY #6 TAB Prov:MIO EASON APRN 07/01/16 Work/School Note: Work Release Form Date Seen in the Emergency Department: Jul 01, 2016 Return to Work: Jul 03, 2016 Images Mouth/Nose 1 - Swelling MIO EASON APRN Jul 01, 2016 20:17
[2016-07-01] MEDS ORDERED: cloNIDine 0.1 MG (CATAPRES) TAB PO ONE (20:30)
[2016-07-01 21:15] VITALS: BP 161/105
[2016-07-01 21:52] VITALS: BP 151/88
[2016-07-01] MEDS ORDERED: PRD20T PO (22:43)
[2016-07-01 22:50] VITALS: BP 155/96
[2016-07-03 07:46] LABS: C4 COMPLEMENT SERUM 15 mg/dL (15-59)
[2016-07-04 16:25] LABS: C1 ESTERASE INHIBITOR C 174 mg/dL (31-67)
== END 2016-07-01 22:50 | disposition home or self-care (01) ==
LOC: EDUNIT# 19:54 → ER 19:55
DX: T78.3XXA Angioneurotic edema, initial encounter (principal); I10 Essential (primary) hypertension; E11.9 Type 2 diabetes mellitus without complications; Z79.84 Long term (current) use of oral hypoglycemic drugs
CPT/HCPCS: 36415; 86160; 86329; 88271; 96372; 96374; 96375

== ENCOUNTER → 2017-02-01 | Outpatient (CLI) | payer BC ==
[~2017-02-01] MED LIST changes: +BUDE10.22 INH; +METF500T8 PO; +METO50TA2 PO
[2017-02-01 17:30] LABS: BASOPHILS # (AUTO) 0.1 10^3/uL (0.0-0.1); BASOPHILS % (AUTO) 1 % (0-10); EOSINOPHILS # (AUTO) 2.5 10^3/uL (0.0-0.3); EOSINOPHILS % (AUTO) 22 % (0-10); LYMPHOCYTES # (AUTO) 1.8 X 10^3 (1.0-4.0); LYMPHOCYTES % (AUTO) 16 % (12-44); MEAN CORPUSCULAR HEMOGLOBIN 26 PG (25-34); MEAN CORPUSCULAR HGB CONC 32 G/DL (32-36); MEAN CORPUSCULAR VOLUME 80 FL (80-99); MEAN PLATELET VOLUME 10.3 FL (7.4-10.4); MONOCYTES # (AUTO) 0.9 X 10^3 (0.0-1.0); MONOCYTES % (AUTO) 8 % (0-12); NEUTROPHILS % (AUTO) 53 % (42-75); PLATELET COUNT 352 10^3/uL (130-400); RED BLOOD COUNT 4.94 10^6/uL (4.35-5.85); RED CELL DISTRIBUTION WIDTH 15.1 % (10.0-14.5); WHITE BLOOD COUNT 11.2 10^3/uL (4.3-11.0)
[2017-02-01 17:58] LABS: ALBUMIN 3.7 GM/DL (3.2-4.5); BILIRUBIN,TOTAL 0.5 MG/DL (0.1-1.0); CALCIUM 9.4 MG/DL (8.5-10.1); CREATININE SERUM 1.5 MG/DL (0.60-1.30); POTASSIUM 3.7 MMOL/L (3.6-5.0); TOTAL PROTEIN 9.1 GM/DL (6.4-8.2)
[2017-02-01 18:11] LABS: ERYTHROCYTE SEDIMENTATION RATE 14 MM/HR (0-30)
[2017-02-01 18:18] LABS: THYROID STIMULATING HORMONE 0.78 UIU/ML (0.35-4.94)
[2017-02-01 18:21] LABS: EOSINOPHILS % (MANUAL) 23 %; LYMPHOCYTES % (MANUAL) 13 %; NEUTROPHILS % (MANUAL) 56 %
== END ==
LOC: LAB 16:51
PROVIDERS: ATTEND Internal Medicine Cardiovascular Disease
DX: I10 Essential (primary) hypertension (principal); E66.9 Obesity, unspecified; T78.3XXA Angioneurotic edema, initial encounter
CPT/HCPCS: 36415; 80053; 82088; 83735; 84443; 85007; 85027; 85652

== ENCOUNTER → 2017-02-03 | Outpatient (CLI) | payer BC ==
[2017-02-03 10:26] LABS: CHOLESTEROL 181 MG/DL (< 200); DIRECT LDL 119 MG/DL (1-129); TRIGLYCERIDES 98 MG/DL (<150); VLDL CHOLESTEROL 20 MG/DL (5-40)
== END ==
LOC: LAB 09:58
PROVIDERS: ATTEND Internal Medicine Cardiovascular Disease
DX: I10 Essential (primary) hypertension (principal); E66.9 Obesity, unspecified; T78.3XXA Angioneurotic edema, initial encounter
CPT/HCPCS: 36415; 80061

== ENCOUNTER → 2017-02-24 | Outpatient (CLI) | payer BC | LOC: CARD 13:43 | PROVIDERS: ATTEND Internal Medicine Cardiovascular Disease | DX: I10 Essential (primary) hypertension (principal); E11.9 Type 2 diabetes mellitus without complications; R01.2 Other cardiac sounds | CPT/HCPCS: 93306 ==

== ENCOUNTER 2017-03-02 09:14 | Outpatient (RCR) | payer BC ==
[2017-02-28 15:24] LABS: ALANINE AMINOTRANSFERASE 17 U/L (0-55); ALBUMIN 3.6 GM/DL (3.2-4.5); ALKALINE PHOSPHATASE 43 U/L (40-136); BILIRUBIN,TOTAL 0.6 MG/DL (0.1-1.0); BUN/CREATININE RATIO 11; CALCIUM 8.8 MG/DL (8.5-10.1); CARBON DIOXIDE 25 MMOL/L (21-32); CHLORIDE 103 MMOL/L (98-107); CREATININE SERUM 1.32 MG/DL (0.60-1.30); GFR ESTIMATED > 60; GLUCOSE 106 MG/DL (70-105); POTASSIUM 4.2 MMOL/L (3.6-5.0); SODIUM 136 MMOL/L (135-145); TOTAL PROTEIN 8.7 GM/DL (6.4-8.2)
[~2017-03-02 09:14] MED LIST changes: +METO50TA15 PO; -METO50TA2 PO
[2017-03-06 11:20] LABS: EPINEPHRINE RATIO 4 UG/G CRT (0-20)
[2017-03-06 11:22] LABS: CREATININE CAT FR MG/DL 184 MG/DL
[2017-03-13 07:45] LABS: URINE VOLUME CAT 1300 ML
== END 2017-05-29 | disposition home or self-care (01) ==
LOC: LAB 09:14
PROVIDERS: ATTEND Nurse Practitioner Family
DX: I10 Essential (primary) hypertension (principal); T78.3XXA Angioneurotic edema, initial encounter; E66.09 Other obesity due to excess calories
CPT/HCPCS: 36415; 80053; 82088; 82384; 82530; 83497; 84585; 85652

== ENCOUNTER → 2017-09-16 | Outpatient (CLI) | payer BC ==
[~2017-09-16] MED LIST changes: +IOHEXOL 350 MG/ML 100 ML (OMNIPAQUE 350) VIAL IV ONE; +NS 250 ML (IVPB) BAG IV ONE
[2017-09-16 15:32] LABS: ALANINE AMINOTRANSFERASE 24 U/L (0-55); ALBUMIN 3.3 GM/DL (3.2-4.5); ALKALINE PHOSPHATASE 50 U/L (40-136); BILIRUBIN,TOTAL 0.4 MG/DL (0.1-1.0); BUN/CREATININE RATIO 15; CARBON DIOXIDE 23 MMOL/L (21-32); CHLORIDE 106 MMOL/L (98-107); CREATININE SERUM 1.41 MG/DL (0.60-1.30); GFR ESTIMATED > 60; GLUCOSE 119 MG/DL (70-105); POTASSIUM 4.1 MMOL/L (3.6-5.0); SODIUM 137 MMOL/L (135-145); TOTAL PROTEIN 9.3 GM/DL (6.4-8.2)
--- NOTE | 2017-09-16 17:09 | Diagnostic Imaging Report ---
PROCEDURE: CT abdomen with and without contrast. TECHNIQUE: Multiple contiguous axial CT images of the abdomen were obtained prior to and after intravenous administration of iodinated contrast. INDICATION: Hypertension. Evaluate for adrenal lesion. COMPARISON: None. FINDINGS: Included portions of the lung bases show small micronodule within the subpleural inferolateral margins of the left lower lobe measuring approximately 3-4 mm (image 12, series 2). Trace right effusion is also noted with associated atelectasis. Adrenal glands have a normal CT appearance. No focal adrenal lesions are identified on this exam. The kidneys, spleen, pancreas, and liver have a normal CT appearance as well. There is no loculated fluid collection, free fluid, nor free air within the abdomen. No abnormal mesenteric or retroperitoneal adenopathy is seen. There is a small hiatal hernia. Included small bowel loops are nondistended. Included portions of the appendix have a normal appearance as well. There is mild calcified aortic atherosclerosis. Bony structures show no acute abnormalities. IMPRESSION: 1. Normal CT appearance of the bilateral adrenal glands. 2. Small micronodule within the inferolateral base of the left lower lobe. Please see below for followup recommendations. PULMONARY NODULE FOLLOW-UP Single nodule: <6 mm: * Low risk patient - no routine follow up * High risk patient - optional at 12 months 6-8 mm in size: * Low risk patient - Ct at 6-12 months, then consider at 18-24 months * High risk patient - Ct at 6-12 months, then at 18-24 months >8 mm * Low risk patient - consider CT at 3 months, PET/CT or tissue sampling * High risk patient - consider CT at 3 months, PET/CT, or tissue sampling (Certain patients at high risk with suspicious nodule morphology, upper lobe location, or both may warrant 12-month follow-up) Dictated by: Dictated on workstation # [id number]
== END ==
LOC: RAD 14:35
PROVIDERS: ATTEND Internal Medicine Endocrinology, Diabetes & Metabolism
DX: R91.8 Other nonspecific abnormal finding of lung field (principal); I10 Essential (primary) hypertension
CPT/HCPCS: 36415; 74170; 80053; 84443

== ENCOUNTER → 2018-03-06 | Outpatient (CLI) | payer BC, OTHER ==
[~2018-03-06] MED LIST changes: -AMLO10TA2 PO; +AMLO10TA6 PO; -IOHEXOL 350 MG/ML 100 ML (OMNIPAQUE 350) VIAL IV ONE; -NS 250 ML (IVPB) BAG IV ONE
--- NOTE | 2018-03-06 14:56 | Diagnostic Imaging Report ---
PROCEDURE: US right lower extremity venous. TECHNIQUE: Multiple real-time grayscale images were obtained over the right lower extremity in various projections. Additional duplex Doppler and color Doppler images were also obtained. INDICATION: Right leg swelling. FINDINGS: There is no evidence of a right lower extremity DVT. The right lower extremity deep venous system shows normal compressibility with normal response to augmentation and Valsalva. No fluid collection or mass is seen. IMPRESSION: No evidence of right lower extremity DVT. Dictated by: Dictated on workstation # [id number]
== END ==
LOC: RAD 13:39
PROVIDERS: ATTEND Nurse Practitioner Family
DX: M79.89 Other specified soft tissue disorders (principal); I10 Essential (primary) hypertension; I34.0 Nonrheumatic mitral (valve) insufficiency; E66.09 Other obesity due to excess calories